=== PATIENT | female | born 1975 | race Caucasian/White ===

== ENCOUNTER 2016-12-25 21:49 | Inpatient (IN) | payer MEDICAID ==
[~2016-12-25] VITALS: Ht 157.5 cm; Wt 90.7 kg
[2016-12-26] MEDS ORDERED: FUROSEMIDE 40MG/4ML VIAL IV STA (01:48)
[2016-12-26 02:19] LABS: EOSINOPHILS % 1.3 % (0.0-5.0); HEMATOCRIT. 40.8 % (36.0-48.0); HEMOGLOBIN. 13.9 g/dL (12.0-16.0); LYMPHOCYTES % 20.6 % (20.0-50.0); MEAN CORPUSCULAR HEMOGLOBIN 30.2 pg (28.0-32.0); MEAN CORPUSCULAR VOLUME 88.6 fL (81.0-99.0); MEAN PLATELET VOLUME 9.7 fl (7.4-10.4); MONOCYTES % 10.4 % (2.0-8.0); NEUTROPHILS % 66.7 % (40.0-76.0); PLATELET 103 x1000/uL (130-400); RED CELL DISTRIBUTION WIDTH 14.3 % (11.6-14.6)
[2016-12-26 02:33] LABS: CARBON DIOXIDE 30 mEq/L (21-32); CHLORIDE 104 mEq/L (98-107); TROPONIN I 0.03 ng/mL (0.00-0.04)
[2016-12-26 10:31] VITALS: BP 104/77
[2016-12-26] MEDS ORDERED: FURO40TA5 PO (10:44)
[2016-12-26] MEDS ORDERED: VIAG50 PO (10:44)
[2016-12-26] MEDS ORDERED: DOCUSATE SODIUM 100MG CAPSULE PO PRN (12:15)
[2016-12-26] MEDS ORDERED: IPRATROPIUM/ALBUTEROL 0.5-3(2.5)MG/3ML NEB INH PRN (12:15)
[2016-12-26] MEDS ORDERED: CLONIDINE 0.1MG TABLET PO PRN (12:15)
[2016-12-26] MEDS ORDERED: HYDROCODONE/ACETAMINOPHEN 5/325MG TABLET PO PRN (12:15)
[2016-12-26] MEDS ORDERED: ONDANSETRON HCL 4MG/2ML VIAL IV PRN (12:15)
[2016-12-26] MEDS ORDERED: GUAIFENESIN 200MG/10ML SUGAR FREE UDC PO PRN (12:15)
[2016-12-26] MEDS ORDERED: MAGNESIUM/ALUMINUM HYDROXIDE/SIMETHICONE 30ML UDC PO PRN (12:15)
[2016-12-26] MEDS ORDERED: ACETAMINOPHEN 325MG TABLET PO PRN (12:15)
[2016-12-26] MEDS ORDERED: SILDENAFIL CITRATE PO SCH (13:00)
[2016-12-26] MEDS: ENOXAPARIN 40MG/0.4ML SYR SUBCUT SCH (13:00)
[2016-12-26 13:01] VITALS: BP 118/81
[2016-12-26 16:00] VITALS: BP 117/82
[2016-12-26 16:02] VITALS: BP 107/86
[2016-12-26] MEDS: SILDENAFIL CITRATE 20MG TABLET PO SCH ×2 (16:03→22:08)
[2016-12-26 16:04] VITALS: BP 101/77
[2016-12-26 17:46] LABS: CREATINE KINASE MB FRACTION 1.6 ng/mL (0.5-3.6); TROPONIN I 0.02 ng/mL (0.00-0.04)
[2016-12-26] MEDS: FUROSEMIDE 40MG/4ML VIAL IVP SCH (18:21)
[2016-12-26] MEDS: POTASSIUM CHLORIDE 20MEQ TABLET SR PO SCH (18:21)
[2016-12-26 20:00] VITALS: BP 105/74
[2016-12-27] VITALS: BP 98/69
[2016-12-27 02:21] LABS: CREATINE KINASE MB FRACTION 1.6 ng/mL (0.5-3.6); TROPONIN I 0.02 ng/mL (0.00-0.04)
[2016-12-27] MEDS: SILDENAFIL CITRATE 20MG TABLET PO SCH ×3 (05:49→21:35)
[2016-12-27 06:05] LABS: BASOPHILS % 1.2 % (0.0-2.0); EOSINOPHILS % 1.4 % (0.0-5.0); HEMATOCRIT. 38.9 % (36.0-48.0); LYMPHOCYTES % 22.5 % (20.0-50.0); MEAN CORPUSCULAR HEMOGLOBIN 29.6 pg (28.0-32.0); MEAN CORPUSCULAR VOLUME 88.3 fL (81.0-99.0); MEAN PLATELET VOLUME 9.9 fl (7.4-10.4); MONOCYTES % 11.7 % (2.0-8.0); NEUTROPHILS % 63.2 % (40.0-76.0); PLATELET 90 x1000/uL (130-400)
[2016-12-27 06:34] LABS: CARBON DIOXIDE 23 mEq/L (21-32); CHLORIDE 104 mEq/L (98-107); HDL CHOLESTEROL 33 mg/dL (40-59); LDL CHOLESTEROL 75 mg/dL (5-100)
[2016-12-27 06:35] LABS: T4 FREE 1.34 ng/dL (0.76-1.46)
[2016-12-27 08:00] VITALS: BP 104/74
[2016-12-27] MEDS ORDERED: FUROSEMIDE 40MG/4ML VIAL IV SCH (09:00)
[2016-12-27] MEDS ORDERED: FUROSEMIDE 40MG TABLET PO SCH (09:00)
[2016-12-27] MEDS: POTASSIUM CHLORIDE 20MEQ TABLET SR PO SCH (10:03)
[2016-12-27] MEDS: FUROSEMIDE 40MG/4ML VIAL IVP SCH ×2 (10:03→17:17)
[2016-12-27] MEDS: ASPIRIN 81MG EC TABLET PO SCH (10:03)
[2016-12-27 13:57] VITALS: BP 116/75
[2016-12-27] MEDS ORDERED: VANCOMYCIN 1 G PREMIX 200 ML IV SCH (14:00)
[2016-12-27] MEDS: ENOXAPARIN 40MG/0.4ML SYR SUBCUT SCH (14:09)
[2016-12-27] MEDS ORDERED: POTASSIUM CHLORIDE 20MEQ TABLET SR PO NR (14:30)
[2016-12-27 16:00] VITALS: BP 110/70
[2016-12-27] MEDS ORDERED: VANCOMYCIN 1,750 MG in DEXT 5% WATER 500 ML IV NR (17:00)
[2016-12-27] MEDS: SPIRONOLACTONE 25MG TABLET PO SCH (17:17)
[2016-12-27 20:00] VITALS: BP 109/71
[2016-12-28] MEDS ORDERED: VANCOMYCIN 750 MG PREMIX 150 ML IV SCH (05:00)
[2016-12-28] MEDS: SILDENAFIL CITRATE 20MG TABLET PO SCH ×3 (06:58→20:58)
[2016-12-28 07:23] LABS: BASOPHILS % 1.1 % (0.0-2.0); EOSINOPHILS % 2.7 % (0.0-5.0); HEMATOCRIT. 38.9 % (36.0-48.0); HEMOGLOBIN. 13.1 g/dL (12.0-16.0); LYMPHOCYTES % 17.4 % (20.0-50.0); MEAN CORPUSCULAR HEMOGLOBIN 29.8 pg (28.0-32.0); MEAN CORPUSCULAR VOLUME 88.6 fL (81.0-99.0); MEAN PLATELET VOLUME 9.9 fl (7.4-10.4); MONOCYTES % 11.9 % (2.0-8.0); NEUTROPHILS % 66.9 % (40.0-76.0); PLATELET 83 x1000/uL (130-400); RED BLOOD CELL COUNT 4.39 mill/uL (4.2-5.4); RED CELL DISTRIBUTION WIDTH 14.2 % (11.6-14.6)
[2016-12-28 08:30] VITALS: BP_SYST 111; BP_SYST 113; BP_DIAS 71; BP_DIAS 73; BP_DIAS 76
[2016-12-28] MEDS: ASPIRIN 81MG EC TABLET PO SCH (08:42)
[2016-12-28] MEDS: POTASSIUM CHLORIDE 20MEQ TABLET SR PO SCH (08:42)
[2016-12-28] MEDS: FUROSEMIDE 40MG/4ML VIAL IVP SCH ×2 (08:42→17:49)
[2016-12-28] MEDS: SPIRONOLACTONE 25MG TABLET PO SCH (08:42)
[2016-12-28 12:30] VITALS: BP 103/66
[2016-12-28 16:00] VITALS: BP 92/58
[2016-12-28] MEDS: VANCOMYCIN 1 G PREMIX 200 ML IV SCH (17:49)
[2016-12-28 20:00] VITALS: BP 97/65
[2016-12-29] VITALS: BP_SYST 100; BP_SYST 98; BP_SYST 99; BP_DIAS 64; BP_DIAS 65; BP_DIAS 71
[2016-12-29 04:00] VITALS: BP 89/62
[2016-12-29 06:26] LABS: BASOPHILS % 1.1 % (0.0-2.0); EOSINOPHILS % 2.3 % (0.0-5.0); HEMATOCRIT. 37.6 % (36.0-48.0); HEMOGLOBIN. 12.7 g/dL (12.0-16.0); LYMPHOCYTES % 19.9 % (20.0-50.0); MEAN CORPUSCULAR HEMOGLOBIN 30.1 pg (28.0-32.0); MEAN CORPUSCULAR VOLUME 89.3 fL (81.0-99.0); MEAN PLATELET VOLUME 9.7 fl (7.4-10.4); MONOCYTES % 11.4 % (2.0-8.0); NEUTROPHILS % 65.3 % (40.0-76.0); PLATELET 86 x1000/uL (130-400); RED BLOOD CELL COUNT 4.22 mill/uL (4.2-5.4); RED CELL DISTRIBUTION WIDTH 14.4 % (11.6-14.6)
[2016-12-29] MEDS: SILDENAFIL CITRATE 20MG TABLET PO SCH ×2 (06:29→13:57)
[2016-12-29 06:37] LABS: CARBON DIOXIDE 25 mEq/L (21-32); CHLORIDE 104 mEq/L (98-107); TROPONIN I < 0.02 ng/mL (0.00-0.04)
[2016-12-29 08:00] VITALS: BP_SYST 102; BP_SYST 107; BP_SYST 112; BP_DIAS 65; BP_DIAS 72; BP_DIAS 73
[2016-12-29] MEDS: POTASSIUM CHLORIDE 20MEQ TABLET SR PO SCH (08:54)
[2016-12-29] MEDS: ASPIRIN 81MG EC TABLET PO SCH (08:55)
[2016-12-29] MEDS: FUROSEMIDE 40MG/4ML VIAL IVP SCH (08:55)
[2016-12-29] MEDS: SPIRONOLACTONE 25MG TABLET PO SCH (08:55)
[2016-12-29 12:00] VITALS: BP 92/70
[2016-12-29] MEDS: VANCOMYCIN 1 G PREMIX 200 ML IV SCH (13:55)
[2016-12-29] MEDS ORDERED: MAGNESIUM OXIDE 400MG TABLET PO NR (15:30)
[2016-12-29] MEDS ORDERED: MAGNESIUM 1 G PREMIX 100 ML IV NR (16:00)
[2016-12-29 16:22] VITALS: BP 112/87
== END 2016-12-29 17:50 | disposition home or self-care (01) | DRG 383 ==
LOC: ER 21:49 → 5WST 12-26 05:35 → EDBEDREQ 12-26 05:38 → ENRESERV 12-26 09:12 → 5WST 12-26 10:18
PROVIDERS: ADMIT Internal Medicine; ATTEND Internal Medicine
DX: L03.116 Cellulitis of left lower limb (principal); J96.00 Acute respiratory failure, unspecified whether with hypoxia or hypercapnia; I50.23 Acute on chronic systolic (congestive) heart failure; E43 Unspecified severe protein-calorie malnutrition; R65.10 Systemic inflammatory response syndrome (SIRS) of non-infectious origin without acute organ dysfunction; I42.9 Cardiomyopathy, unspecified; I27.2 Other secondary pulmonary hypertension; I11.0 Hypertensive heart disease with heart failure; E86.0 Dehydration; I27.81 Cor pulmonale (chronic); I25.10 Atherosclerotic heart disease of native coronary artery without angina pectoris; E78.00 Pure hypercholesterolemia, unspecified; E78.5 Hyperlipidemia, unspecified; E66.9 Obesity, unspecified; E87.6 Hypokalemia; Z88.8 Allergy status to other drugs, medicaments and biological substances; Z68.36 Body mass index [BMI] 36.0-36.9, adult; Z79.899 Other long term (current) drug therapy; Z83.3 Family history of diabetes mellitus; Z84.1 Family history of disorders of kidney and ureter; Z82.49 Family history of ischemic heart disease and other diseases of the circulatory system
CPT/HCPCS: 36415; 71010; 78582; 80048; 80053; 80061; 81025; 82550; 82553; 83735; 83880; 84439; 84443; 84484; 85025; 93005; 93306; 93970; 96374; 99285; A9558; J1650; J1940; J3370; J3475; J7050; J7060; J7620

== ENCOUNTER 2017-07-19 19:13 | Emergency (ER) | payer MEDICAID ==
[~2017-07-19] VITALS: Ht 162.6 cm; Wt 68.0 kg
[~2017-07-19 19:13] MED LIST: EPINEPHRINE 0.1MG/ML (1:10,000) 10ML SYR ONE; ETOMIDATE 2MG/ML 10ML VIAL IV ONE; MAGNESIUM SULFATE 4G IN WATER 100ML PREMIX IV ONE; SUCCINYLCHOLINE CHLORIDE 200MG/10ML VIAL IV ONE; VIAG50 PO
[2017-07-19] MEDS ORDERED: MORPHINE SULFATE 4 MG/ML CPJ (NOT FOR IM USE) IV STA (19:21)
[2017-07-19] MEDS ORDERED: SODIUM CHLORIDE 0.9% 1,000 ML IV ONE (19:21)
[2017-07-19] MEDS ORDERED: FAMOTIDINE 20MG/2ML VIAL IV STA (19:21)
[2017-07-19] MEDS ORDERED: ONDANSETRON HCL 4MG/2ML VIAL IV STA (19:21)
[2017-07-19 19:48] LABS: EOSINOPHILS % 0.3 % (0.0-5.0); HEMATOCRIT. 34.8 % (36.0-48.0); HEMOGLOBIN. 10.9 g/dL (12.0-16.0); LYMPHOCYTES % 11.6 % (20.0-50.0); MEAN CORPUSCULAR HEMOGLOBIN 22.8 pg (28.0-32.0); MEAN CORPUSCULAR VOLUME 73.1 fL (81.0-99.0); MEAN PLATELET VOLUME 8.5 fl (7.4-10.4); MONOCYTES % 13.1 % (2.0-8.0); PLATELET 207 x1000/uL (130-400); RED BLOOD CELL COUNT 4.77 mill/uL (4.2-5.4); RED CELL DISTRIBUTION WIDTH 17.1 % (11.6-14.6)
[2017-07-19 19:55] LABS: INR 1.1; PROTHROMBIN TIME 11.9 sec (9.4-11.6)
[2017-07-19 20:03] LABS: CARBON DIOXIDE 26 mEq/L (21-32); CHLORIDE 93 mEq/L (98-107); ETHANOL BLOOD < 10 mg/dL
[2017-07-19 20:11] LABS: KETONES URINE NEGATIVE (NEGATIVE); LEUKOCYTE ESTERASE URINE 3+ (NEGATIVE); NITRITE URINE POSITIVE (NEGATIVE); OCCULT BLOOD URINE 3+ (NEGATIVE); PROTEIN URINE TRACE (NEGATIVE); SPECIFIC GRAVITY URINE 1.014 (1.005-1.030)
[2017-07-19 20:12] LABS: CLARITY URINE CLOUDY (CLEAR); COLOR URINE YELLOW (YELLOW)
[2017-07-19 20:36] LABS: *AMPHETAMINES SCREEN URINE NEGATIVE (NEGATIVE); *BARBITURATES SCREEN URINE NEGATIVE (NEGATIVE); *BENZODIAZEPINES SCREEN URINE NEGATIVE (NEGATIVE); *COCAINE SCREEN URINE NEGATIVE (NEGATIVE); CANNABINOID URINE SCREEN NEGATIVE (NEGATIVE); METHADONE URINE SCREEN NEGATIVE (NEGATIVE); OPIATES URINE SCREEN NEGATIVE (NEGATIVE); PHENCYCLIDINE URINE SCREEN NEGATIVE (NEGATIVE)
[2017-07-19] MEDS ORDERED: SODIUM CHLORIDE 0.9% 1,000 ML IV NR (22:27)
[2017-07-19] MEDS ORDERED: METRONIDAZOLE 500 MG PREMIX 100 ML IV NR (22:30)
[2017-07-19] MEDS ORDERED: LEVOFLOXACIN 750MG PREMIX 150 ML IV NR (23:45)
[2017-07-20] MEDS ORDERED: SODIUM CHLORIDE 0.9% 1000ML BAG (SEPSIS BOLUS) IV NR (01:15)
[2017-07-20 08:10] VITALS: BP 112/48
[2017-07-20 08:22] LABS: BG BASE EXCESS -6.1 mmol/L (-2.0-2.0); BG CARBOXYHEMOGLOBIN 0.9 % (0.5-1.5); BG DEOXYHEMOGLOBIN 11.7 % (0.0-5.0); BG HCO3 ACT 16.7 mmol/L (22.0-26.0); BG METHEMOGLOBIN 0.2 % (0.0-1.5); BG OXYGEN SATURATION 88.2 % (92.0-98.5); BG OXYHEMOGLOBIN 87.2 % (94.0-97.0); BG PCO2 25.8 mmHg (35.0-45.0); BG PH 7.429 (7.350-7.450); BG PO2 57.3 mmHg (75.0-100.0); BG SAMPLE SITE LEFT RADIAL; BG VENT MODE NASAL CANNULA
[2017-07-20] MEDS ORDERED: LORAZEPAM 2MG/ML CPJ ONE (08:39)
[2017-07-20] MEDS ORDERED: LORAZEPAM 2MG/ML CPJ IV ONE (08:45)
[2017-07-20] MEDS ORDERED: ETOMIDATE 2MG/ML 10ML VIAL IV ONE (08:45)
[2017-07-20] MEDS ORDERED: SUCCINYLCHOLINE CHLORIDE 200MG/10ML VIAL IV ONE (08:45)
[2017-07-20] MEDS ORDERED: PROPOFOL 10MG/ML 100ML 100 ML IV ONE (08:45)
[2017-07-20] MEDS ORDERED: SODIUM CHLORIDE 0.9% 250 ML IV NR (08:45)
[2017-07-20] MEDS ORDERED: EPINEPHRINE 0.1MG/ML (1:10,000) 10ML SYR ONE ×2 (08:52→09:00)
== END 2017-07-20 08:56 | disposition expired ==
LOC: ER 20:17 → EDBEDREQSVC 07-20 07:40 → ER 07-20 08:56 → CANBEDREQ 07-20 16:30
DX: N12 Tubulo-interstitial nephritis, not specified as acute or chronic (principal); I46.9 Cardiac arrest, cause unspecified; R60.1 Generalized edema; E87.1 Hypo-osmolality and hyponatremia; E86.0 Dehydration; E87.6 Hypokalemia; I11.0 Hypertensive heart disease with heart failure; J90 Pleural effusion, not elsewhere classified; I50.9 Heart failure, unspecified; I31.3 Pericardial effusion (noninflammatory); K80.20 Calculus of gallbladder without cholecystitis without obstruction; E87.2 Acidosis; I27.20 Pulmonary hypertension, unspecified
CPT/HCPCS: 31500; 36415; 36600; 71045; 74176; 76705; 80053; 80305; 81001; 82270; 82375; 82805; 82962; 83605; 83690; 84484; 85025; 85610; 87015; 87040; 87045; 87077; 87086; 87186; 87427; 87449; 87493; 89055; 92950; 96374; 96375; 99291; G0482; J0171; J0330; J1956; J2060; J2270; J2405; J3475; J3490; J7030; Z7610; A4315